=== PATIENT | male | born 1990 | race Caucasian/White ===

== ENCOUNTER 2018-01-05 22:35 | Emergency (ER) | payer OTHER ==
[~2018-01-05] VITALS: Ht 177.8 cm; Wt 93.0 kg
--- NOTE | 2018-01-09 14:53 | NUR ---
FAXED CHART NOTES TO [facility] INCLUDING FACE SHEET, ER NOTES AND SUMMARY. RECIEVED A FAX CONFIRMATION
== END 2018-01-05 23:56 | disposition home or self-care (01) ==
LOC: ED 22:35
PROC: 0HQ1XZZ Repair Face Skin, External Approach (ICD-10-PCS; principal; 2018-01-05)
DX: S01.81XA Laceration without foreign body of other part of head, initial encounter (principal); Z87.891 Personal history of nicotine dependence; Z23 Encounter for immunization; Y04.0XXA Assault by unarmed brawl or fight, initial encounter
CPT/HCPCS: 12011; 90471; 90715; 99283